=== PATIENT | male | born 1975 | race Two or more races ===

== ENCOUNTER 2019-05-08 18:52 | Emergency (ER) | payer SELFPAY ==
[~2019-05-08] VITALS: Ht 165.1 cm; Wt 102.8 kg
[2019-05-08 19:02] VITALS: BP 129/75
[2019-05-08] MEDS ORDERED: ACETAMINOPHEN 500 MG TABLET ONE (19:18)
--- NOTE | 2019-05-08 19:22 | NUR ---
PT MEDICATED PER ORDERS. AMBULATED TO XR WITH [employer].
[2019-05-08] MEDS ORDERED: ACETAMINOPHEN 500 MG TABLET PO ONE (19:30)
--- NOTE | 2019-05-08 19:51 | NUR ---
[facility] PA IN FOR RECHECK.
--- NOTE | 2019-05-08 20:04 | NUR ---
D/C INSTRUCTIONS, MEDS & F/U APPT RV'WD WITH PT, HE VERBALIZES UNDERSTANDING. RX GIVEN X1. PT AMBULATED OUT OF ED WITH SON WITHOUT DIFFICULTY.
== END 2019-05-08 20:07 | disposition home or self-care (01) ==
LOC: ED 19:50
DX: J06.9 Acute upper respiratory infection, unspecified (principal); R51 Headache; R05 Cough; F17.210 Nicotine dependence, cigarettes, uncomplicated; Z72.9 Problem related to lifestyle, unspecified
CPT/HCPCS: 71046; 99283; 99406